=== PATIENT | male | born 1955 | race Caucasian/White ===

== ENCOUNTER 2024-09-16 16:14 | Emergency (ER) | payer BC, MEDICARE ==
[2024-09-16] MEDS ORDERED: Sodium Chloride 0.9% 10 ML Syringe FLUSH PRN (16:18)
[2024-09-16] MEDS: Iopamidol 755 Mg/ML 100 ML Bottle IV ONE (16:30)
== END 2024-09-16 17:55 | disposition home or self-care (01) ==
LOC: KA.ED 16:14
DX: K57.32 Diverticulitis of large intestine without perforation or abscess without bleeding (principal); Z79.899 Other long term (current) drug therapy
CPT/HCPCS: 74177; 99284; A9270-GY; Q9967